=== PATIENT | male | born 1970 ===

== ENCOUNTER 2017-04-21 07:38 | Day surgery (SDC) | payer MEDICAID, OTHER ==
[2017-04-21 09:01] VITALS: TEMP 97
[2017-04-21] MEDS ORDERED: Lactated Ringer's 500 ML IV ONE (09:26)
--- NOTE | 2017-04-21 09:26 | CP.SDSHP ---
Same Day Surgery H & P - History Proposed Procedure: colonosocpy Pre-Op Diagnosis: colitis - Allergies Allergies: Allergies iodine Adverse Reaction (Verified 04/21/17 08:10) RASH - Physical Exam General Appearance: good Vital Signs: Vital Signs 04/21/17 08:43 Temperature 97 F L Pulse Rate 79 Respiratory 19 Rate Blood Pressure 144/89 O2 Sat by Pulse 100 Oximetry Mental Status: Alert & Oriented x3 Neuro: WNL Heart: WNL Lungs: WNL GI: WNL - {Optional Preform as Required} Abdomen: WNL - Impression Impression: colitis Pt. Evaluated Today:Candidate for Anesthesia & Procedure: Yes - Date & Time Date: 04/21/17 Time: 09:20 Short Stay Discharge - Short Stay Discharge Admitting Diagnosis/Reason for Visit: COLITIS Disposition: HOME/ ROUTINE
[2017-04-21] MEDS ORDERED: Midazolam 2 MG/2 ML VIAL ONE (09:31)
[2017-04-21] MEDS ORDERED: Propofol 10 mg/ml Inj (20 ML) ONE (09:32)
[2017-04-21] MEDS ORDERED: Lidocaine Hydrochloride 5 ML INJ ONE (09:32)
[2017-04-21 12:50] VITALS: BP 112/78; PULSE 72; O2SAT 100
[2017-04-21 12:58] VITALS: RESP 20
== END 2017-04-21 11:20 | disposition home or self-care (01) ==
LOC: C.ENDO 07:38
PROVIDERS: ATTEND Internal Medicine Gastroenterology
DX: K64.8 Other hemorrhoids (principal); K52.89 Other specified noninfective gastroenteritis and colitis
CPT/HCPCS: 45380; 87045; 87177; 87209; 87230; 88305; J2250; J2704; J7120